=== PATIENT | female | born 1995 | race Caucasian/White ===

== ENCOUNTER 2017-03-16 11:47 | Outpatient (CLI) | payer OTHER ==
[2017-03-16 13:01] LABS: APPEARANCE,URINE CLEAR; BILIRUBIN,URINE NEGATIVE (NEGATIVE); GLUCOSE, URINE NEGATIVE (NEGATIVE); KETONES,URINE NEGATIVE (NEGATIVE); LEUKOCYTE ESTERASE,URINE TRACE (NEGATIVE); NITRITE,URINE NEGATIVE (NEGATIVE); PROTEIN,URINE NEGATIVE (NEGATIVE); URINE SPECIFIC GRAVITY 1.005; UROBILINOGEN,URINE NEGATIVE mg/dL (<2.0)
[2017-03-16 13:26] LABS: URINE BARBITURATES SCREEN NEGATIVE; URINE METHADONE SCREEN NEGATIVE; URINE OPIATES LOW NEGATIVE; URINE PHENCYCLIDINE SCREEN NEGATIVE
== END 2017-03-16 13:15 | disposition home or self-care (01) ==
LOC: LC 11:47
PROVIDERS: ATTEND Specialist
PROC: 4A1HXCZ Monitoring of Products of Conception, Cardiac Rate, External Approach (ICD-10-PCS; principal; 2017-03-16)
DX: Z34.93 Encounter for supervision of normal pregnancy, unspecified, third trimester (principal); Z36 Encounter for antenatal screening of mother; Z3A.28 28 weeks gestation of pregnancy
CPT/HCPCS: 80307; 81001

== ENCOUNTER 2017-05-18 18:08 | Outpatient (CLI) | payer OTHER ==
[2017-05-18 18:50] LABS: URINE BARBITURATES SCREEN NEGATIVE; URINE METHADONE SCREEN NEGATIVE; URINE OPIATES LOW NEGATIVE; URINE PHENCYCLIDINE SCREEN NEGATIVE
== END 2017-05-18 19:43 | disposition home or self-care (01) ==
LOC: LC 18:08
PROVIDERS: ATTEND Obstetrics & Gynecology
PROC: 4A1HXCZ Monitoring of Products of Conception, Cardiac Rate, External Approach (ICD-10-PCS; principal; 2017-05-18)
DX: O47.1 False labor at or after 37 completed weeks of gestation (principal); Z3A.37 37 weeks gestation of pregnancy
CPT/HCPCS: 59025; 80307

== ENCOUNTER 2017-06-06 01:06 | Inpatient (IN) | payer OTHER ==
--- NOTE | 2017-06-06 01:12 | Non Stress Test Report ---
Non Stress Test Datetime Report Generated by CPN: 06/06/2017 01:11 DEMOGRAPHIC EGA NST: 37.6 INDICATION Indication for Study: Other Indication for Study (NST) Other: labor check MONITORING Monitor Explained: Monitor Explained; Test Explained; Patient Verbalized Understanding Time on Monitor: 05/18/2017 18:23 Time off Monitor: 05/18/2017 19:34 NST Duration: 71 NST INTERVENTIONS NST Interventions: PO Hydration Physician Notified NST: Dr. Jaguar BABY A: [id number] BABY A Movement : Present Contraction Frequency : IREGG FHR Baseline : 135 Accelerations : 15X15 Decelerations : None Variability : Moderate 6-25bpm NST Review: Meets Criteria for Reactive NST NST Review and Verified By : Robert Valverde RN NST Results: Reactive NST REPORT Report Trigger: Send Report
[2017-06-06 01:41] LABS: APPEARANCE,URINE CLEAR; BILIRUBIN,URINE NEGATIVE (NEGATIVE); GLUCOSE, URINE NEGATIVE (NEGATIVE); KETONES,URINE NEGATIVE (NEGATIVE); LEUKOCYTE ESTERASE,URINE NEGATIVE (NEGATIVE); NITRITE,URINE NEGATIVE (NEGATIVE); PROTEIN,URINE NEGATIVE (NEGATIVE); URINE SPECIFIC GRAVITY 1.004; UROBILINOGEN,URINE NEGATIVE mg/dL (<2.0)
[2017-06-06 01:49] LABS: AMNISURE (ROM) POSITIVE (NEGATIVE)
[2017-06-06] MEDS ORDERED: RINGERS SOLUTION,LACTATED 1,000 ML IV ONE (01:54)
[2017-06-06 02:01] LABS: URINE BARBITURATES SCREEN NEGATIVE; URINE METHADONE SCREEN NEGATIVE; URINE OPIATES LOW NEGATIVE; URINE PHENCYCLIDINE SCREEN NEGATIVE
[2017-06-06 02:26] LABS: ABSOLUTE BASOPHILS # (AUTO) 0.1 10^3/uL (0.0-0.2); ABSOLUTE EOSINOPHILS # (AUTO) 0.1 10^3/uL (0.0-0.6); ABSOLUTE LYMPHOCYTES (AUTO) 2.2 10^3/uL (0.5-4.7); ABSOLUTE MONOCYTES (AUTO) 1.1 10^3/uL (0.1-1.4); ABSOLUTE NEUT (AUTO) 10.9 10^3/uL (1.7-8.2); BASOPHILS % (AUTO) 0.5 % (0-2); EOSINOPHILS % (AUTO) 0.6 % (0-6); HEMATOCRIT 44.2 % (36.0-47.0); HGB HCT DIFFERENCE 0.8; LYMPHOCYTES % (AUTO) 15.1 % (13-45); MEAN CORPUSCULAR HEMOGLOBIN 30.2 pg (27.0-33.4); MEAN CORPUSCULAR VOLUME 89 fl (80-97); MONOCYTES % (AUTO) 7.6 % (3-13); RED BLOOD COUNT 4.98 10^6/uL (3.72-5.28); RED CELL DISTRIBUTION WIDTH 14.1 % (11.5-14.0); SEGMENTED NEUTROPHILS % (AUTO) 76.2 % (42-78); WHITE BLOOD COUNT 14.3 10^3/uL (4.0-10.5)
[2017-06-06 02:37] LABS: ALANINE AMINOTRANSFERASE 28 U/L (5-35); ALBUMIN 3.2 g/dL (3.7-5.6); ALKALINE PHOSPHATASE 179 U/L (50-135); ANION GAP 9 (5-19); ASPARTATE AMINO TRANSFERASE 21 U/L (5-30); BILIRUBIN,DIRECT 0.2 mg/dL (0.0-0.4); BILIRUBIN,TOTAL 0.4 mg/dL (0.2-1.3); BLOOD UREA NITROGEN 10 mg/dL (7-20); CALCIUM 9.1 mg/dL (8.4-10.2); CARBON DIOXIDE 21 mmol/L (22-30); CHLORIDE 106 mmol/L (98-107); CREATININE RESULT 0.58 mg/dL (0.52-1.25); GLUCOSE 79 mg/dL (75-110); POTASSIUM 3.8 mmol/L (3.6-5.0); SODIUM 136.3 mmol/L (137-145)
[2017-06-06] MEDS ORDERED: OXYTOCIN/NORMAL SALINE 20 UNIT/1,000 ML RTUINJ IV PRN (02:45)
[2017-06-06] MEDS ORDERED: OXYTOCIN/NORMAL SALINE 20 UNIT/1,000 ML RTUINJ ONE (02:55)
--- NOTE | 2017-06-06 10:43 | L&D Progress Notes ---
PROGRESS NOTES Datetime Report Generated by CPN: 06/06/2017 10:43 PROGRESS NOTE Impression: Normal Progression of Labor Plan: Continue Present Management; Augmentation Informed Consent Obtained: Vaginal Delivery; Risks, Benefits and Alternatives Discussed Vital Signs : Reviewed Comment: 21 yo admitted for SROM at 2130 06/05/17 EDC 06/02/17 EGA 40.3 GDM diet controlled last random blood sugar 97 after eating a granola bar abdomen nontender afebrile pitocin at 10 mu/ min ctxs 1-3 min pt on birthing ball discussed prophylaxis at 18 hours ruptured- will start amp and gent per protocol cervical exam - forebag ruptured moderate meconium wireless monitoring poc reviewed with pt and spouse anticipate VAGINAL EXAM Dilatation: 2 Effacement: 50 Station: -2 MEMBRANES Membranes: Ruptured Membranes: Ruptured Amniotic Fluid Color: Clear FETUS A FHR - Baseline: 130 Monitoring: External US Variability: Moderate 6-25bpm Accelerations: 15X15 Decelerations: None FHR Category: Category I : 40.0 : 40.4 SIGNATURE SIGNATURE: ,[id number] SIGNATURE: ,[id number] Assignment: Verenice Barbosa MD Signature: with User ID: [email or web address] : with User ID: [email or web address]
[2017-06-06] MEDS ORDERED: PROMETHAZINE HCL INJ 25 MG/1 ML VIAL IV ONE (12:40)
[2017-06-06] MEDS ORDERED: NALBUPHINE HCL INJ 10 MG/1 ML AMPULE INJ ONE (12:40)
[2017-06-06] MEDS ORDERED: PROMETHAZINE HCL INJ 25 MG/1 ML VIAL ONE (12:45)
[2017-06-06] MEDS ORDERED: NALBUPHINE HCL INJ 10 MG/1 ML AMPULE ONE (12:45)
[2017-06-06] MEDS ORDERED: EPHEDRINE SULFATE INJ 50 MG/1 ML AMPULE ONE (14:26)
[2017-06-06] MEDS ORDERED: MISOPROSTOL 0.2 MG TABLET ONE (14:26)
[2017-06-06] MEDS ORDERED: FENTANYL/BUPIVACAINE/NS/PF 200 MCG/100 ML RTUINJ EPI ONE (14:27)
[2017-06-06] MEDS ORDERED: LIDOCAINE 1% INJ-PF (10 MG/ML) 30 ML SDV ONE (14:27)
[2017-06-06] MEDS ORDERED: BUPIVACAINE HCL 0.25 % INJ/PF (2.5 MG/1 ML) 30 ML VIAL ONE (14:28)
--- NOTE | 2017-06-06 14:56 | L&D Progress Notes ---
PROGRESS NOTES Datetime Report Generated by CPN: 06/06/2017 14:55 PROGRESS NOTE Impression: Normal Progression of Labor Vital Signs : Reviewed Comment: late decelerations pt repositioned on hands and knees o2 via facemask pitocin discontinued cvx 5/80/-1 moderate to thick particulate meconium reviewed pain management with pt and spouse anticipate will restart pitocin when strip is reactive MEMBRANES Amniotic Fluid Color: Meconium, Particulate FETUS A Monitoring: External US Variability: Moderate 6-25bpm Decelerations: Late FHR Category: Category I FETUS C SIGNATURE: [id number];10,[id number] Assignment: Verenice Barbosa MD Signature: with User ID: [email or web address] : with User ID: [email or web address]
[2017-06-06] MEDS ORDERED: AMPICILLIN SOD INJ 2 GM VIAL IV ONE (15:29)
[2017-06-06] MEDS ORDERED: AMPICILLIN SOD INJ 2 GM VIAL ONE (15:31)
[2017-06-06] MEDS ORDERED: GENTAMICIN SULFATE INJ 80 MG/2 ML VIAL IM SCH (15:45)
[2017-06-06] MEDS ORDERED: GENTAMICIN SULFATE INJ 80 MG/2 ML VIAL IV SCH (18:00)
[2017-06-06] MEDS ORDERED: NA PHOS,M-B/NA PHOS,DI-BA (ADULT) 133 ML ENEMA PR PRN (20:06)
[2017-06-06] MEDS ORDERED: ZOLPIDEM TARTRATE 5 MG TABLET PO PRN (20:06)
[2017-06-06] MEDS ORDERED: MEASLES,MUMPS&RUBELLA VACC/PF 0.5 ML VIAL SUBCUT PRN (20:06)
[2017-06-06] MEDS ORDERED: ACETAMINOPHEN WITH CODEINE #3 TABLET PO PRN ×2 (20:06)
[2017-06-06] MEDS ORDERED: BENZOCAINE/MENTHOL AEROSOL SPRAY 56 ML TOP PRN (20:06)
[2017-06-06] MEDS ORDERED: PSEUDOEPHEDRINE HCL 30 MG TABLET PO PRN (20:06)
[2017-06-06] MEDS ORDERED: DIBUCAINE 1% OINTMENT 28 GM TP PRN (20:06)
[2017-06-06] MEDS ORDERED: DIPH/PERTUSS(ACELL)/TETANUS VAC/PF 0.5 ML SYR (>=10YO) IM PRN (20:06)
[2017-06-06] MEDS ORDERED: DIPHENHYDRAMINE HCL 25 MG CAPSULE PO PRN (20:06)
[2017-06-06] MEDS ORDERED: ACETAMINOPHEN 650 MG SUPP.RECT PR PRN (20:06)
[2017-06-06] MEDS ORDERED: PROMETHAZINE HCL 25 MG TABLET PO PRN (20:06)
[2017-06-06] MEDS ORDERED: OXYTOCIN/NORMAL SALINE 1,000 ML IV PRN (20:06)
[2017-06-06] MEDS ORDERED: PROMETHAZINE HCL INJ 25 MG/1 ML VIAL IV PRN (20:06)
[2017-06-06] MEDS ORDERED: MAGNESIUM HYDROXIDE SUSP 30 ML UDCUP PO PRN (20:06)
[2017-06-06] MEDS ORDERED: GLYCERIN/WITCH HAZEL LEAF 1 EACH MED..PAD TP PRN (20:06)
[2017-06-06] MEDS ORDERED: PROMETHAZINE HCL 25 MG SUPP.RECT PR PRN (20:06)
[2017-06-06] MEDS ORDERED: IBUPROFEN 800 MG TABLET ONE (20:07)
[2017-06-06] MEDS ORDERED: AMPICILLIN SOD INJ 1 GM VIAL IM SCH (21:00)
--- NOTE | 2017-06-06 21:27 | Admission Physical ---
Datetime Report Generated by CPN: 06/06/2017 21:26 CURRENT ADMISSION Chief Complaint: Suspected Ruptured Membranes Indication for Induction: Not Applicable Admit Plan: Admit to Unit; Initiate Labor Augmentation Protocol ALLERGIES Medication Allergies: No Medication Allergies: No Known Allergies (06/06/2017) Medication Allergies: No Known Allergies (03/16/2017) Latex: No Latex Allergies Food Allergies: None Environmental Allergies: None OBSTETRICAL HISTORY EDC: 06/02/2017 00:00 : 1 Para: 0 Term: 0 : 0 SAB: 0 IAB: 0 Ectopic: 0 Livin Cesareans: 0 VBACs: 0 Multiple Births: 0 Gestational Diabetes: Yes Rh Sensitization: No Incompetent Cervix: No AIDE: No Infertility: No ART Treatment: No Uterine Anomaly: No IUGR: No Hx Previous C/S: No Macrosomia: No Hx Loss/Stillborn: No PIH: No Hx : No Placenta Previa/Abruption: No Depression/PP Depression: No PTL/PROM: No Post Hemorrhage: No Current Procedures: Ultrasound Obstetrical History Comments: G1: GDM diet controlled, weekly NST SEE RECORDS Alcohol: No Marijuana : No Cocaine: No Other Illicit Drugs: No Cigarettes: Never Smoker. 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: No Heart Disease: No Hosp/Surgery: No Autoimmune Disorder: No Anesthetic Complications: No Kidney Disease: No Abnormal Pap Smear: No Neuro/Epilepsy: No Psychiatric Disorders: No Other Medical Diseases: No Hepatitis/Liver Disease: No Significant Family History: No Varicosities/Phlebitis: No Trauma/Violence : No Thyroid Dysfunction: No INFECTIOUS HISTORY Gonorrhea: No Genital Herpes: No Chlamydia: No Tuberculosis: No Syphilis: No Hepatitis: No HIV/AIDS Exposure: No Rash or Viral Illness: No HPV: No PHYSICAL EXAM General: Normal HEENT: Normal Neurologic: Normal Thyroid: Deferred Heart: Normal Lungs: Normal Breast: Deferred Back: Normal Abdomen: Normal Genitourinary Exam: Normal Extremities: Normal DTRs: Normal Pelvic Type: Adequate Vital Signs: Reviewed; Within Normal Limits VAGINAL EXAM Dilatation: 2 Effacement: 50 Station: -2 MEMBRANES Membranes: Ruptured Membranes: Ruptured Amniotic Fluid Color: Meconium, Particulate Amniotic Fluid Color: Clear FETUS A EGA: 40.4 Monitoring: External US FHR- Baseline: 140 Variability: Moderate 6-25bpm Accelerations: 15X15 Decelerations: None FHR Category: Category I PLANS FOR LABOR AND DELIVERY Labor and Delivery: None Pain Management: None Feeding Preference: Breast Benefit of Breast Feed Discussed: Yes Circumcision: No INFORMED CONSENT Informed Consent Obtained: Vaginal Delivery; Risks, Benefits and Alternatives Discussed Signature: with User ID: [email or web address]
[2017-06-06] MEDS: IBUPROFEN 800 MG TABLET PO SCH (21:51)
[2017-06-06] MEDS: GENTAMICIN SULFATE 130 MG in DEXTROSE 5%-WATER 100 ML IV SCH (21:51)
[2017-06-06] MEDS: AMPICILLIN SOD INJ 1 GM VIAL IV SCH (22:15)
[2017-06-06] MEDS: FAMOTIDINE 20 MG TABLET PO SCH (22:16)
[2017-06-07] MEDS ORDERED: GENTAMICIN SULFATE INJ 80 MG/2 ML VIAL ONE (01:25)
[2017-06-07] MEDS: GENTAMICIN SULFATE 130 MG in DEXTROSE 5%-WATER 100 ML IV SCH ×3 (02:26→21:32)
[2017-06-07] MEDS: AMPICILLIN SOD INJ 1 GM VIAL IV SCH ×4 (03:43→21:44)
[2017-06-07] MEDS: IBUPROFEN 800 MG TABLET PO SCH ×3 (06:19→21:32)
[2017-06-07 07:31] LABS: HEMATOCRIT 34.6 % (36.0-47.0); HGB HCT DIFFERENCE 1.1; MEAN CORPUSCULAR HEMOGLOBIN 30.3 pg (27.0-33.4); MEAN CORPUSCULAR HGB CONC 34.3 g/dL (32.0-36.0); MEAN CORPUSCULAR VOLUME 88 fl (80-97); RED BLOOD COUNT 3.91 10^6/uL (3.72-5.28); RED CELL DISTRIBUTION WIDTH 14.4 % (11.5-14.0); WHITE BLOOD COUNT 19.6 10^3/uL (4.0-10.5)
[2017-06-07 07:41] LABS: HEMOGLOBIN 11.9 g/dL (12.0-15.5)
--- NOTE | 2017-06-07 09:45 | PDOC PROGRESS REPORT ---
Subjective-OB Subjective: Post Delivery Day: 21 year old. Denies any needs at this time OOB in halls and nursery, c/o of discomfort in vulva from edema, machuca remains in place, eating well, scant bleeding, hsb at BS, baby in NICU Physical Exam (OB) Vital Signs: Temp Pulse Resp BP Pulse Ox 97.9 F 97 H 18 112/59 L 100 06/07/17 09:11 06/07/17 09:11 06/07/17 09:11 06/07/17 09:11 06/07/17 09:11 Intake & Output 06/06/17 06/07/17 06/08/17 06:59 06:59 06:59 Output Total 1200 Balance -1200 Weight 62.55 kg - Lochia Lochia Amount: Small 10-25 ml Lochia Color: Rubra/Red - Abdomen Description: Soft, Round Hernia Present: No Fundal Description: Firm, Midline Fundal Height: u/u - u/2 Objective-Diagnostic Laboratory: 06/07/17 07:08 06/06/17 02:10 06/07/17 07:08 WBC 19.6 H RBC 3.91 Hgb 11.9 L D Hct 34.6 L MCV 88 MCH 30.3 MCHC 34.3 RDW 14.4 H Plt Count 185 Assessment and Plan(PN) - Assessment and Plan (1) Gestational diabetes mellitus Qualifiers: Gestational diabetes mellitus control: diet-controlled Trimester: second trimester Qualified Code(s): O24.410 - Gestational diabetes mellitus in , diet controlled Is this a current diagnosis for this admission?: Yes (2) Vaginal delivery Is this a current diagnosis for this admission?: Yes - Time Spent with Patient Time with patient: Less than 15 minutes Medications reviewed and adjusted accordingly: Yes - Disposition Anticipated Discharge: Home Within: within 48 hours
[2017-06-07] MEDS: SENNOSIDES/DOCUSATE 8.6-50 MG 1 EACH TABLET PO SCH (10:12)
[2017-06-07] MEDS: FERROUS SULFATE 325 MG TABLET PO SCH ×2 (10:12→17:26)
[2017-06-07] MEDS: PRENATAL VITAMIN W-O CA NO5/FE FUMARATE/FA CAPSULE PO SCH (10:12)
[2017-06-07] MEDS: DOCUSATE SODIUM 100 MG CAPSULE PO SCH ×2 (10:12→17:25)
[2017-06-07] MEDS: FAMOTIDINE 20 MG TABLET PO SCH ×2 (10:12→21:31)
[2017-06-07] MEDS ORDERED: ZOLPIDEM TARTRATE 5 MG TABLET PO PRN (15:05)
[2017-06-07] MEDS ORDERED: PROMETHAZINE HCL INJ 25 MG/1 ML VIAL IV PRN (15:06)
[2017-06-07] MEDS ORDERED: MAGNESIUM HYDROXIDE SUSP 30 ML UDCUP PO PRN (15:06)
[2017-06-08] MEDS: IBUPROFEN 800 MG TABLET PO SCH (05:56)
[2017-06-08] MEDS: GENTAMICIN SULFATE 130 MG in DEXTROSE 5%-WATER 100 ML IV SCH (05:57)
[2017-06-08] MEDS: AMPICILLIN SOD INJ 1 GM VIAL IV SCH ×2 (05:57→10:06)
[2017-06-08 08:10] VITALS: BP 119/63
--- NOTE | 2017-06-08 09:08 | PDOC DISCHARGE SUMMARY ---
Final Diagnosis Discharge Date: 06/08/17 - Final Diagnosis (1) Gestational diabetes mellitus Is this a current diagnosis for this admission?: Yes (2) Vaginal delivery Is this a current diagnosis for this admission?: Yes Discharge Data - Discharge Medication Home Medications: Calcium Carbonate [Tums] 200 mg PO DAILY 03/16/17 [place]-3 Fatty Acids [Fish Oil] 300 mg PO DAILY 03/16/17 Vit/Iron Fumarate/FA [ Tablet] 1 each PO DAILY 03/16/17 Ranitidine HCl [Zantac 150 mg Tablet] 150 mg PO BID PRN 06/06/17 Acetaminophen with Codeine [Tylenol #3 Tablet] 2 each PO Q4HP PRN #20 tablet Docusate Sodium [Colace 100 mg Capsule] 100 mg PO BID #60 capsule 06/08/17 Ibuprofen [Motrin 800 mg Tablet] 800 mg PO Q8 #60 tablet 06/08/17 Reason(s) for Admission: PROM Procedures: NST Intrapartum Procedure(s): Spontaneous Vaginal Delivery Complication(s): Laceration-Vaginal, Laceration-Perineal, Laceration- Labial Laceration-Degree: 2nd - Data Baby 1 Male at 1 minute: 2 at 5 minutes: 7 at 10 minutes: 7 Weight: 3.572 kg Home with Mother: No Complications: Yes - thick mec, in nicu - Diagnosis Test Laboratory: Temp Pulse Resp BP Pulse Ox 97.8 F 62 16 119/63 97 06/08/17 08:00 06/08/17 08:00 06/08/17 08:00 06/08/17 08:00 06/08/17 08:00 06/06/17 06/06/17 06/07/17 01:20 02:10 07:08 RBC 4.98 3.91 Hgb 15.0 11.9 L D Hct 44.2 34.6 L Urine Opiates Screen NEGATIVE - Discharge information/Instructions Discharge Activity: Activity As Tolerated, Pelvic Rest, No tub bath Discharge Diet: Regular Disposition: HOME, SELF-CARE Follow up with: [facility] in: 4, Weeks
[2017-06-08 09:27] LABS: HEMATOCRIT 35.1 % (36.0-47.0); HEMOGLOBIN 11.6 g/dL (12.0-15.5); HGB HCT DIFFERENCE -0.3; MEAN CORPUSCULAR HGB CONC 33.2 g/dL (32.0-36.0); MEAN CORPUSCULAR VOLUME 90 fl (80-97); RED BLOOD COUNT 3.88 10^6/uL (3.72-5.28); RED CELL DISTRIBUTION WIDTH 14.5 % (11.5-14.0); WHITE BLOOD COUNT 11.3 10^3/uL (4.0-10.5)
--- NOTE | 2017-06-08 09:45 | Delivery Summary ---
Del Sum A-C Datetime Report Generated by CPN: 06/08/2017 09:45 DELIVERY PERSONNEL DELIVERY PERSONNEL: [id number] DELIVERY PERSONNEL: [id number] DELIVERY PERSONNEL: [id number] DELIVERY PERSONNEL: [id number] Delivery Doctor:: Verenice Barbosa MD Labor and Delivery Nurse:: Cat Multani RNtraffic coordinator Nurse:: Berta Hansen RN Nursery Nurse:: Evelyn San RN Nursery Nurse:: Marylin Adams RN Esthetician/PAINTER SHIPYARD: Apryl Dunn CNA II Esthetician/PAINTER SHIPYARD: Deidra Gonzalez CST Additional Personnel: : E JOSE ALFREDO, ST MATERNAL INFORMATION Delivery Anesthesia: Local; Epidural Medications After Delivery: Pitocin Bolus-Please Comment; Pitocin Drip 20 Units/1000ml NSS Meds After Delivery Comment: CYTOTEC 1000 MG WA Estimated Blood Loss (ml): 300 Other Maternal Complications: PROM- SUSPECTED CHORIO Provider Comments: Called to room due to FHR deceleration to 80's. Santiago had just been removed and cvx c/c/+2 with presentation LOP. Meconium stained amniotic fluid. Pt consented for operative delivery with forceps and forceps applied and 2 maternal push/pulls with minimal change of station then FHR spontaneously improved to 130-140s and Forceps removed and pt continued to push. After some time of pushing repeat deceleration into 80-90's and forceps reapplied after confirming Direct OP presentation now. 2 maternal push/pulls with change of station to +3 and then spontaneous FHR resolution to 140's therefore forceps disarticulated and patient was able to deliver baby with maternal effort alone. delivered in Direct OP with compound right arm. Shoulders and body delivered w/o difficulty. Cord doubly clamped and cut and infant to Nursery for NRP after spontaneous cry. Apgars and weight pending. Placenta delivered spontaneously intact. FF at U. Lacerations repaired with good hemostasis. Mother stable upon provider leaving the room. LABOR SUMMARY EDC: 06/02/2017 00:00 No. Babies in Womb: 0 Attempted: No Labor Anesthesia: Epidural LABOR INFORMATION Reason for Induction: Not Applicable Onset of Labor: 06/06/2017 10:36 Complete Dilatation: 06/06/2017 17:12 Oxytocin: Augmentation Group B Beta Strep: negative Antibiotics # of Doses: 2 Antibiotics Time of Last Dose: 5/1712 Name of Antibiotic Given: AMPICILLIN/ GENTAMYCIN Steroids Given: None Reason Steroids Not Administered: Not Applicable MEMBRANES Membranes Rupture Method: Artificial Membranes Rupture Method: Spontaneous Rupture of Membranes: 06/05/2017 21:00 Length of Rupture (hr): 21.80 Amniotic Fluid Color: Moderate Meconium Amniotic Fluid Color: Clear Amniotic Fluid Amount: Moderate Amniotic Fluid Odor: Foul STAGES OF LABOR Stage 1 hr: 6 Stage 1 min: 36 Stage 2 hr: 1 Stage 2 min: 36 Stage 3 hr: 0 Stage 3 min: 2 Total Time in Labor hr: 8 Total Time in Labor min: 14 VAGINAL DELIVERY Episiotomy: None Laceration Extension: First Degree Laceration Type: Perineal Other Laceration: MIDLINE; BILAT LABIAL TEAR Laceration Repair: Yes Laceration Repair Note: First degree ML laceration and Bilateral Labial lacerations repaired in usual fashion. Sponge Count Correct: N/A Sharps Count Correct: N/A CSECTION DELIVERY Primary Indication: N/A Secondary Indication: N/A CSection Incidence: N/A Labor: N/A Elective: N/A CSection Incision: N/A BABY A INFORMATION Infant Delivery Date/Time: 06/06/2017 18:48 Method of Delivery: Vaginal Born in Route : No : N/A Forceps: Low Vacuum Extraction: N/A Shoulder Dystocia : No PRESENTATION/POSITION BABY A Presentation: Cephalic Presentation: Cephalic Presentation: Cephalic Presentation: Cephalic Cephalic Presentation: Vertex Vertex Position: DIRECT OP WITH COMPOUND RT ARM Breech Presentation: N/A PLACENTA INFORMATION BABY A Placenta Delivery Time : 06/06/2017 18:50 Placenta Method of Delivery: Spontaneous Placenta Status: Delivered SCORES BABY A Heart Rate 1 min: >100 bpm Resp Effort 1 min: Absent Reflex Irritability 1 min: No Response Muscle Tone 1 min: Flaccid Color 1 min: Blue/Pale Resuscitation Effort 1 min: Tactile Stimulation; Oxygen; PPV/NCPAP SCORE 1 MIN: 2 Heart Rate 5 min: >100 bpm Resp Effort 5 min: Good Cry Reflex Irritability 5 min: Grimace Muscle Tone 5 min: Some Flexion of Extremities Color 5 min: Body [place], Extremities Blue Resuscitation Effort 5 min: Tactile Stimulation; Oxygen; PPV/NCPAP SCORE 5 MIN: 7 Heart Rate 10 min: >100 bpm Resp Effort 10 min: Good Cry Reflex Irritability 10 min: Grimace Muscle Tone 10 min: Some Flexion of Extremities Color 10 min: Body [place], Extremities Blue Resuscitation Effort 10 min: Oxygen SCORE 10 MIN: 7 INFANT INFORMATION BABY A Gestational Age at Delivery: 40.4 Gestational Status: Full Term- 39- 40.6 Weeks Outcome : Liveborn Condition : Fair Infant Sex: Male IDENTIFICATION BABY A Infant Verification Date/Time: 06/06/2017 19:02 ID Band Number: [id number] Mother's Name Verified: Yes RN Verifying Infant: Huong Montesinos RN Additional Verifying Personnel: D. Tej, US WEIGHT/LENGTH BABY A Birthweight (gm): 3583 Infant Weight (lb): 7 Infant Weight (oz): 14 Infant Length (in): 21.00 Length (cm): 53.34 CORD INFORMATION BABY A No. Cord Vessels: 3 Nuchal Cord : N/A Cord Blood Taken: Yes-For Storage (Mom's Blood type +) ASSESSMENT BABY A Infant Complications: Multiple Late Decels; Multiple Variable Decels; Meconium Complications- Other: TERMINAL MECONIUM Physical Findings at Delivery: Caput Succedaneum Infant Respirations: Grunting; Nasal Flaring; Sternal Retractions; Tachypnea Skin to Skin: No Biomass Production Manager/ALS Called : Yes Care By: Lana SAN RN Transferred To: [facility] BABY B INFORMATION : N/A SIGNATURES Signature: with User ID: [email or web address]
[2017-06-08] MEDS: FERROUS SULFATE 325 MG TABLET PO SCH (10:03)
[2017-06-08] MEDS: PRENATAL VITAMIN W-O CA NO5/FE FUMARATE/FA CAPSULE PO SCH (10:05)
[2017-06-08] MEDS: SENNOSIDES/DOCUSATE 8.6-50 MG 1 EACH TABLET PO SCH (10:05)
[2017-06-08] MEDS: DOCUSATE SODIUM 100 MG CAPSULE PO SCH (10:05)
[2017-06-08] MEDS: FAMOTIDINE 20 MG TABLET PO SCH (10:06)
== END 2017-06-08 11:23 | disposition home or self-care (01) | DRG 775 ==
LOC: LC 01:06 → LR 01:54 → 2S 21:15
PROVIDERS: ADMIT Student in an Organized Health Care Education/Training Program; ATTEND Student in an Organized Health Care Education/Training Program
PROC: 10D07Z8 Extraction of Products of Conception, Other, Via Natural or Artificial Opening (ICD-10-PCS; principal; 2017-06-06)
PROC: 0UQMXZZ Repair Vulva, External Approach (ICD-10-PCS; 2017-06-06)
PROC: 0HQ9XZZ Repair Perineum Skin, External Approach (ICD-10-PCS; 2017-06-06)
DX: O24.420 Gestational diabetes mellitus in childbirth, diet controlled (principal); O76 Abnormality in fetal heart rate and rhythm complicating labor and delivery; O32.6XX0 Maternal care for compound presentation, not applicable or unspecified; O77.0 Labor and delivery complicated by meconium in amniotic fluid; O70.0 First degree perineal laceration during delivery; O71.89 Other specified obstetric trauma; Z3A.40 40 weeks gestation of pregnancy; Z37.0 Single live birth
CPT/HCPCS: 36415; 80053; 80307; 81005; 82962; 84112; 85025; 85027; 86592; 86850; 86900; 86901; 88307; 94760; 99465; J0290; J1580; J2300; J2550; J2590; J3490